=== PATIENT | male | born 1995 | race Caucasian/White ===

== ENCOUNTER 2016-07-07 20:53 | Emergency (ER) | payer SELFPAY | END 2016-07-08 02:31 | disposition home or self-care (01) | LOC: ER 20:53 | DX: S43.401A Unspecified sprain of right shoulder joint, initial encounter (principal); X50.0XXA Overexertion from strenuous movement or load, initial encounter; F17.210 Nicotine dependence, cigarettes, uncomplicated; Z88.1 Allergy status to other antibiotic agents | CPT/HCPCS: 73030; 99070; 99283 ==

== ENCOUNTER 2016-07-20 23:13 | Emergency (ER) | payer OTHER | END 2016-07-21 00:20 | disposition home or self-care (01) | LOC: ER 23:13 | DX: M24.111 Other articular cartilage disorders, right shoulder (principal); M25.511 Pain in right shoulder; F17.210 Nicotine dependence, cigarettes, uncomplicated; Z88.0 Allergy status to penicillin | CPT/HCPCS: 96372; 99282-25; 99283 ==